=== PATIENT | male | born 1950 | race Hispanic/Latino ===

== ENCOUNTER 2022-10-10 05:50 | Observation (INO) | payer OTHER ==
[2022-10-09 11:19] LABS: BASOPHILS % (AUTO) 1.7 % (0.0-5.0); EOSINOPHILS % (AUTO) 3.6 % (0.0-8.0); HEMATOCRIT 36.6 % (42-54); LYMPHOCYTES % (AUTO) 32.5 % (21.0-51.0); MEAN CORPUSCULAR HGB CONC 33.1 g/dL (32.0-36.0); MEAN CORPUSCULAR VOLUME 87.8 fL (79-99); MONOCYTES % (AUTO) 6.6 % (3.0-13.0); PLATELET COUNT (AUTO) 322 K/uL (130-400); RED BLOOD CELL COUNT(AUTO) 4.17 MIL/uL (4.50-6.20); RED CELL DISTRIBUTION WIDTH 13.3 % (11.0-15.5); WHITE BLOOD COUNT (AUTO) 6.4 K/uL (4.8-10.8)
[2022-10-09 11:29] LABS: CREATININE 1.3 mg/dL (0.5-1.5); POTASSIUM 4.4 mmol/L (3.5-5.1)
[2022-10-09 11:36] VITALS: BP 157/75
[2022-10-09 12:23] LABS: PROTHROMBIN TIME 10.9 SEC (9.6-11.6)
[2022-10-09 12:24] LABS: PARTIAL THROMBOPLASTIN TIME 29.1 SEC (26.3-35.5)
[2022-10-10] VITALS (24 sets, daily range): BP systolic 85–147; BP diastolic 47–71
[~2022-10-10] VITALS: Ht 162.6 cm; Wt 93.4 kg
[~2022-10-10 05:50] MED LIST: AEC81 PO; ASCO100031 PO; BENA-8 PO; CYAN50009 PO; DONE10TA43 PO; DUTA0.5C37 PO; FENO145T26 PO; FERR-82 PO; GABA300C PO; LACTATED RINGERS 1000ML 1,000 ML IV SCH; LEVO-171 PO; LEVO5TAB13 PO; METF-444 PO; MULT-1367 PO; OMEP20TA20 PO; PRAM0.5T12 PO; ROSU20TA31 PO; TAMS-1 PO; VITAMIN D3 PO; ZINC220T4 PO
[2022-10-10] MEDS ORDERED: CEFAZOLIN SODIUM 1 GM VIAL IVPB SCH (06:00)
[2022-10-10] MEDS ORDERED: ROPIVICAINE 250MG+KETOROLAC 15MG+EPINEPHRINE 0.3+CLONIDINE 80 IV PRN ×5 (06:00)
[2022-10-10] MEDS ORDERED: 0.9%NACL 1000ML 1,000 ML IV ONE (06:51)
[2022-10-10] MEDS ORDERED: TRANEXAMIC ACID 1000MG/10ML ONE (07:29)
[2022-10-10] MEDS ORDERED: PROPOFOL 10 MG/ML 20ML VIAL IV ONE (08:47)
[2022-10-10] MEDS ORDERED: LIDOCAINE PF 100MG/5ML (2%) SYRINGE 5ML ONE (08:47)
[2022-10-10] MEDS ORDERED: GLYCOPYRROLATE 1 MG/5 ML SYRINGE ONE (08:47)
[2022-10-10] MEDS ORDERED: SUCCINYLCHOLINE CHLORIDE 20 MG/ML 10 ML VIAL ONE (08:47)
[2022-10-10] MEDS ORDERED: DEXAMETHASONE SOD PHOSPHATE 10MG/ML 1ML VIAL ONE (08:47)
[2022-10-10] MEDS ORDERED: ONDANSETRON 4MG INJ ONE (08:47)
[2022-10-10] MEDS ORDERED: FENTANYL CITRATE PF 50 MCG/1 ML 2ML VIAL ONE (08:48)
[2022-10-10] MEDS ORDERED: NEOSTIGMINE 5MG/5ML SYR IV ONE (08:48)
[2022-10-10] MEDS ORDERED: ROCURONIUM 10MG/1ML SYR 10 MG/ML ML ONE (08:48)
[2022-10-10] MEDS ORDERED: MIDAZOLAM HCL 1 MG/ML 2ML VIAL ONE (08:48)
[2022-10-10] MEDS ORDERED: CEFAZOLIN SODIUM 2 GM VIAL IVPB ONE (08:50)
[2022-10-10] MEDS ORDERED: EPHEDRINE SULFATE 50 MG/ML AMPULE ONE (09:24)
[2022-10-10] MEDS ORDERED: KCL 20 MEQ ERTAB PO PRN (09:30)
[2022-10-10] MEDS ORDERED: POTASSIUM CHLORIDE 10% ELIXIR 20 MEQ/15 ML UDCUP PO PRN (09:30)
[2022-10-10] MEDS ORDERED: HYDROCODONE/ACETAMINOPHEN 10/325 MG TAB PO PRN (09:30)
[2022-10-10] MEDS ORDERED: HYDROCODONE/ACETAMINOPHEN 5/325 MG TAB PO PRN (09:30)
[2022-10-10] MEDS: 0.9%NACL 1000ML 1,000 ML IV SCH ×2 (09:30→17:41)
[2022-10-10] MEDS ORDERED: ONDANSETRON 4MG INJ IVP PRN (09:30)
[2022-10-10] MEDS ORDERED: MORPHINE 4 MG SYG IVP PRN (09:30)
[2022-10-10] MEDS ORDERED: LIDOCAINE HCL-MPF 1% 2ML VIAL IV PRN (09:30)
[2022-10-10] MEDS ORDERED: POTASSIUM CHLORIDE 20MEQ/100ML 100 ML IV PRN (09:30)
[2022-10-10] MEDS: LEVOTHYROXINE 75 MCG TABLET PO SCH (10:28)
[2022-10-10] MEDS: INSULIN HUMULIN R 100 UNIT/ML 3ML SQ SCH ×3 (11:30→21:00)
[2022-10-10] MEDS: ACETAMINOPHEN 1,000 MG/100 ML VIAL IV SCH ×3 (12:07→21:50)
[2022-10-10] MEDS ORDERED: IBUPROFEN 800MG + NS 250ML IV SCH (12:30)
[2022-10-10] MEDS: FERROUS SULFATE 325 MG TABLET.DR PO SCH (13:18)
[2022-10-10] MEDS: MULTIVITAMIN TABLET PO SCH (13:20)
[2022-10-10] MEDS: PRAMIPEXOLE DI-HCL 0.25 MG TABLET PO SCH ×2 (14:00→21:25)
[2022-10-10] MEDS: FAMOTIDINE 20MG TAB PO SCH ×2 (14:34→21:26)
[2022-10-10] MEDS: TRAMADOL HCL 50 MG TABLET PO SCH ×2 (14:34→17:40)
[2022-10-10] MEDS: CALDOLOR 800MG+NS 250ML 250 ML IV SCH ×2 (14:35→21:26)
[2022-10-10] MEDS: CEFAZOLIN SODIUM 1 GM VIAL IVP SCH ×2 (14:57→21:27)
[2022-10-10] MEDS: METFORMIN HCL 500 MG TABLET PO SCH (17:40)
[2022-10-10] MEDS ORDERED: DONEPEZIL HCL 5 MG TAB PO SCH (21:00)
[2022-10-10] MEDS ORDERED: FINASTERIDE 5 MG TABLET PO SCH (21:00)
[2022-10-10] MEDS ORDERED: FENOFIBRATE NANOCRYSTALLIZED 145 MG TAB PO SCH (21:00)
[2022-10-10] MEDS ORDERED: GABAPENTIN 300 MG CAPSULE PO SCH (21:00)
[2022-10-10] MEDS ORDERED: TAMSULOSIN HCL 0.4 MG CAP.ER.24H PO SCH (21:00)
[2022-10-10] MEDS ORDERED: BENAZEPRIL HCL 10 MG TABLET PO SCH (21:00)
[2022-10-10] MEDS ORDERED: ***HM***(Levocetirizine Dihydrochloride 5 MG) PO SCH (21:00)
[2022-10-10] MEDS: ASPIRIN 81 MG EC TAB PO SCH (21:25)
[2022-10-11] VITALS: BP 137/59
[2022-10-11] MEDS: TRAMADOL HCL 50 MG TABLET PO SCH ×3 (00:47→12:33)
[2022-10-11 04:00] VITALS: BP 148/61
[2022-10-11] MEDS: INSULIN HUMULIN R 100 UNIT/ML 3ML SQ SCH ×3 (05:27→16:30)
[2022-10-11 05:32] LABS: HEMATOCRIT 33.2 % (42-54); MEAN CORPUSCULAR HEMOGLOBIN 28.8 pg (27.0-33.0); MEAN CORPUSCULAR HGB CONC 32.5 g/dL (32.0-36.0); MEAN CORPUSCULAR VOLUME 88.5 fL (79-99); RED BLOOD CELL COUNT(AUTO) 3.75 MIL/uL (4.50-6.20); RED CELL DISTRIBUTION WIDTH 13.4 % (11.0-15.5); WHITE BLOOD COUNT (AUTO) 8.1 K/uL (4.8-10.8)
[2022-10-11] MEDS: CALDOLOR 800MG+NS 250ML 250 ML IV SCH (05:42)
[2022-10-11] MEDS: LEVOTHYROXINE 75 MCG TABLET PO SCH (05:42)
[2022-10-11 05:56] LABS: CREATININE 1.3 mg/dL (0.5-1.5)
[2022-10-11] MEDS ORDERED: PANTOPRAZOLE 40 MG TAB DR PO SCH (07:30)
[2022-10-11] MEDS ORDERED: POLYETHYLENE GLYCOL 3350 17 GM POWD.PACK PO SCH (09:00)
[2022-10-11] MEDS ORDERED: VITAMIN D3 5000 UNIT PO SCH (09:00)
[2022-10-11] MEDS ORDERED: ZINC SULFATE 220 CAPSULE PO SCH (09:00)
[2022-10-11] MEDS: ASPIRIN 81 MG EC TAB PO SCH (09:35)
[2022-10-11] MEDS: PRAMIPEXOLE DI-HCL 0.25 MG TABLET PO SCH ×2 (09:35→14:26)
[2022-10-11] MEDS: FAMOTIDINE 20MG TAB PO SCH (09:35)
[2022-10-11] MEDS: MULTIVITAMIN TABLET PO SCH (09:35)
[2022-10-11] MEDS: FERROUS SULFATE 325 MG TABLET.DR PO SCH (09:35)
[2022-10-11] MEDS: METFORMIN HCL 500 MG TABLET PO SCH (09:43)
[2022-10-13] MEDS ORDERED: BISACODYL 10 MG SUPP.RECT RC PRN (09:30)
== END 2022-10-11 17:02 | disposition home or self-care (01) ==
LOC: DAH 05:50 → DAHIP 05:51 → 4DH 16:36
PROVIDERS: ADMIT Orthopaedic Surgery; ATTEND Orthopaedic Surgery
DX: M17.12 Unilateral primary osteoarthritis, left knee (principal); Z20.822 Contact with and (suspected) exposure to COVID-19; M25.562 Pain in left knee; G89.29 Other chronic pain; R26.89 Other abnormalities of gait and mobility; Z68.34 Body mass index [BMI] 34.0-34.9, adult; Z79.899 Other long term (current) drug therapy; Z98.890 Other specified postprocedural states
CPT/HCPCS: 80048 ×2; 85025; 85610; 85730; 87426; 36415 ×2; 87641; 27447; 96376; 96365; 96366 ×2; 96375; 82948 ×6; 97039 ×2; 96367; 85027; 97161; 97116 ×2; 97530 ×2; A4649 ×6; C1776 ×4; G0378 ×24; A4663; J7030 ×2; J3010; J0690 ×4; J3490 ×3; J1100; J2710; J0330; J2001; J2250; J2704; J2405; J2270 ×2; J1741; A6223; A6219; G0168; A6255; A5120; A4215; A4223; A4222; A4221